=== PATIENT | female | born 1960 | race African-American/Black ===

== ENCOUNTER 2017-07-09 06:48 | Day surgery (SDC) | payer MEDICARE, OTHER ==
[~2017-07-09] VITALS: Ht 157.5 cm; Wt 102.0 kg
[2017-07-09] VITALS (8 sets, daily range): BP systolic 105–121; BP diastolic 59–77; PULSE 58–72; RESP 14–20; Ht 157.5 cm; Wt 102.0 kg
--- NOTE | 2017-07-09 04:27 | PREOPHP ---
DATE OF ADMISSION: 07/09/2017 HISTORY OF PRESENT ILLNESS: This is a 56-year-old lady, 1, para 0, and her last normal menstrual period was at the age of 51. She was admitted for D and C, hysteroscopy and suction curettage. This patient had an ultrasound done and ultrasound revealed endometrial thickness 1.4 cm. Endometrial biopsy was done but did not show enough tissue. The patient wanted to go for D and C for total rule out of endometrial hyperplasia. The procedures were explained to the patient and she understood everything totally. The risks, benefits, and alternatives were discussed with her as well. Also that the endometrial biopsy did not show any endometrial tissue was told. PAST PERSONAL HISTORY: No history of TB, asthma or allergy. The patient has a history of a stroke in 2013. SURGICAL HISTORY: She had surgery in 2013. She had D and C done 40 years ago. She had biopsy of the right breast in 1972 and 1974. FAMILY HISTORY: Mother had a stroke. Brothers and grandmother on mother's side have diabetes. Brother, mother, and grandmother on mother's side have high blood pressure. DIRECT SUPPORT PROFESSIONAL HISTORY: She had menarche at the age of 11, every 28 days interval, 3-4 days duration, and moderate in amount. REVIEW OF SYSTEMS: CARDIOVASCULAR: No chest pain. RESPIRATORY: No cough. GASTROINTESTINAL: No diarrhea. No vomiting. GENITOURINARY: No dysuria. PHYSICAL EXAMINATION: GENERAL: Reveals a conscious, coherent lady, in no acute distress. VITAL SIGNS: Blood pressure 120/80, pulse rate 80 per minute, respirations 16 per minute. LUNGS: Breath sounds and lungs within normal limits. ABDOMEN: Soft. No organomegaly. Obese. PELVIC EXAM: Revealed the cervix to be firm. Uterus at upper limits of normal. Adnexa were negative for masses. RECTAL EXAM: Confirmed the pelvic findings. EXTREMITIES: No pedal edema. ADMITTING DIAGNOSES: 1. Endometrial thickening, rule out endometrial hyperplasia. 2. Morbid obesity. PLAN: The patient was planned to have D and C, hysteroscopy and suction curettage. The procedures were explained to her. She understood everything totally. The risks, benefits, and alternatives were discussed with her as well. Dictated By: Denae Montgomery MD /[email or web address]/[email or web address] /Document#: [id number]
[2017-07-09] MEDS ORDERED: METO-407 PO (07:31)
[2017-07-09] MEDS ORDERED: LISI10TA2 PO (07:31)
[2017-07-09] MEDS ORDERED: HYDR25TA6 PO (07:32)
[2017-07-09] MEDS ORDERED: ATOR40TA68 PO (07:32)
[2017-07-09] MEDS ORDERED: LEVE500S8 PO (07:32)
[2017-07-09] MEDS ORDERED: OXCA300T41 PO (07:33)
[2017-07-09] MEDS ORDERED: OXCA150T43 PO (07:33)
[2017-07-09] MEDS ORDERED: SUCR1TAB56 PO (07:34)
[2017-07-09] MEDS ORDERED: POTA20TA96 PO (07:35)
[2017-07-09] MEDS ORDERED: ERGO500037 PO (07:35)
[2017-07-09] MEDS ORDERED: MEPERIDINE 100 MG INJ ONE (09:43)
[2017-07-09] MEDS ORDERED: PROPOFOL 20 ML ONE (09:43)
[2017-07-09] MEDS ORDERED: LIDOCAINE 2% (SDV) 5 ML INJ ONE (09:43)
[2017-07-09] MEDS ORDERED: CEFAZOLIN 1 GM INJ ONE (09:43)
[2017-07-09] MEDS ORDERED: EPHEDrine SULFATE 50 MG/5 ML SYG ONE (10:12)
[2017-07-09] MEDS ORDERED: LABETALOL HCL 20MG INJ IV PRN (10:30)
[2017-07-09] MEDS ORDERED: OXYCODONE/ACETAMINOPHEN (5/325) TAB PO PRN ×2 (10:30)
[2017-07-09] MEDS ORDERED: DIPHENHYDRAMINE 50 MG INJ IV PRN (10:30)
[2017-07-09] MEDS ORDERED: HYDROmorphONE (0.2 MG/ML) 10ML SYG IV PRN ×3 (10:30)
[2017-07-09] MEDS ORDERED: METOCLOPRAMIDE 10 MG INJ IV PRN (10:30)
[2017-07-09] MEDS ORDERED: MIDAZOLAM 1 MG/ML 2 ML INJ IV PRN (10:30)
[2017-07-09] MEDS ORDERED: MEPERIDINE 25 MG INJ IV PRN (10:30)
[2017-07-09] MEDS ORDERED: EPHEDrine SULFATE 50 MG/5 ML SYG IV PRN (10:30)
[2017-07-09] MEDS ORDERED: hydrALAzine 20 MG INJ IV PRN (10:30)
[2017-07-09] MEDS ORDERED: ONDANSETRON 4 MG INJ IV PRN (10:30)
[2017-07-09] MEDS ORDERED: FENTAnyl 50 MCG/ML VIAL IV PRN ×3 (10:30)
--- NOTE | 2017-07-09 10:51 | SIPON ---
Date/Time of Note Date/Time of Note DATE: 07/09/17 TIME: 10:50 Operative Report Preoperative Diagnosis ENDOMETRIAL THICKENING OBESITY Postoperative Diagnosis ENDOMETRIAL THICKENING OBESITY PENDING PATHOLOGY Operation/Procedure Performed DILATATION AND CURETTAGE HYSTEROSCOPY SUCTION CURETTAGE Surgeon see signature line ophthalmology assistant BUTCHER'S ASSISTANT Anesthesia: general Estimated blood loss: minimal Transfusion Required none Specimen ECC [facility] SUCTION CURETTAGE Grafts/Implants none Complications none SUMMER SCHMID MD Jul 09, 2017 10:51
--- NOTE | 2017-07-09 10:51 | SIPON ---
Date/Time of Note Date/Time of Note DATE: 07/09/17 TIME: 10:50 Operative Report Preoperative Diagnosis ENDOMETRIAL THICKENING OBESITY Postoperative Diagnosis ENDOMETRIAL THICKENING OBESITY PENDING PATHOLOGY Operation/Procedure Performed DILATATION AND CURETTAGE HYSTEROSCOPY SUCTION CURETTAGE Surgeon see signature line human resource assistant METAL HANGER Anesthesia: general Estimated blood loss: minimal Transfusion Required none Specimen ECC EMC SUCTION CURETTAGE Grafts/Implants none Complications none SUMMER SCHMID MD Jul 09, 2017 10:51
[2017-07-09] MEDS ORDERED: ACETAMINOPHEN 325 MG TAB PO PRN (11:00)
--- NOTE | 2017-07-09 22:44 | RADRPT ---
Vent Rate: 57 bpm RR Interval: 0 msec [place] Interval: 176 msec QRS Duration: 88 msec QT Interval: 428 msec QTC Interval: 416 msec P-R-T [place]: 74 - 78 - 49 degrees Sinus bradycardia Nonspecific T wave abnormality Abnormal ECG Electronically Signed By: Irving Harris [id number]
--- NOTE | 2017-07-09 22:44 | RADRPT ---
Vent Rate: 57 bpm RR Interval: 0 msec [place] Interval: 176 msec QRS Duration: 88 msec QT Interval: 428 msec QTC Interval: 416 msec P-R-T [place]: 74 - 78 - 49 degrees Sinus bradycardia Nonspecific T wave abnormality Abnormal ECG Electronically Signed By: Irving Harris [id number]
--- NOTE | 2017-07-09 23:07 | OPR ---
DATE OF OPERATION: 07/09/2017 PREOPERATIVE DIAGNOSES: 1. Endometrial thickening. 2. Rule out endometrial hyperplasia. 3. Obesity. POSTOPERATIVE DIAGNOSES: Pending pathology report. SURGEON: Denae Montgomery MD PYROTECHNICIAN: Farheen loyola. ANESTHESIA: General. OPERATION PERFORMED: 1. Fractional dilatation and curettage. 2. Hysteroscopy. 3. Suction curettage. OPERATIVE PROCEDURE: Under general anesthesia, the patient was prepped and draped in the usual fashion for vaginal surgery. Pelvic exam under anesthesia revealed the cervix to be firm, uterus of normal size, and adnexa were negative for masses. Then the heavyweight vaginal retractor was put in place, and the anterior lip of the cervix was grasped with an Allis clamp, and the cervical dilatation up to [place] 7 was proceeded. Uterus was sounded to about 3 inches. Then the hysteroscope was inserted inside the uterine cavity and connected with the light source. The uterus was distended with normal saline. There were no polyps nor fibroids seen. Endocervical curettage was done, and a small amount of tissue was obtained. Endometrial curettage was done, and a small amount of tissue was obtained. Suction tip size 6 was inserted inside the uterine cavity and connected with a suction machine. Suction curettage was done, and a small amount of tissue was obtained. The uterus was intact during and after the procedure. Patient tolerated the procedure well. Estimated blood loss was minimal. Vital signs were stable during and after the procedure. Dictated By: Denae Montgomery MD /[email or web address] /Document#: [id number] CC: Denae Montgomery MD
--- NOTE | 2017-07-09 23:07 | OPR ---
DATE OF OPERATION: 07/09/2017 PREOPERATIVE DIAGNOSES: 1. Endometrial thickening. 2. Rule out endometrial hyperplasia. 3. Obesity. POSTOPERATIVE DIAGNOSES: Pending pathology report. SURGEON: Denae Montgomery MD PRECISION CROP MANAGER: Farheen loyola. ANESTHESIA: General. OPERATION PERFORMED: 1. Fractional dilatation and curettage. 2. Hysteroscopy. 3. Suction curettage. OPERATIVE PROCEDURE: Under general anesthesia, the patient was prepped and draped in the usual fashion for vaginal surgery. Pelvic exam under anesthesia revealed the cervix to be firm, uterus of normal size, and adnexa were negative for masses. Then the heavyweight vaginal retractor was put in place, and the anterior lip of the cervix was grasped with an Allis clamp, and the cervical dilatation up to [place] 7 was proceeded. Uterus was sounded to about 3 inches. Then the hysteroscope was inserted inside the uterine cavity and connected with the light source. The uterus was distended with normal saline. There were no polyps nor fibroids seen. Endocervical curettage was done, and a small amount of tissue was obtained. Endometrial curettage was done, and a small amount of tissue was obtained. Suction tip size 6 was inserted inside the uterine cavity and connected with a suction machine. Suction curettage was done, and a small amount of tissue was obtained. The uterus was intact during and after the procedure. Patient tolerated the procedure well. Estimated blood loss was minimal. Vital signs were stable during and after the procedure. Dictated By: Denae Montgomery MD /[email or web address] /Document#: [id number] CC: Denae Montgomery MD
== END 2017-07-09 11:30 | disposition home or self-care (01) ==
LOC: SDS 06:48
PROVIDERS: ATTEND Obstetrics & Gynecology
DX: D26.0 Other benign neoplasm of cervix uteri (principal); I10 Essential (primary) hypertension; E78.5 Hyperlipidemia, unspecified; E66.9 Obesity, unspecified
CPT/HCPCS: 58558; 84703; 88305; 93005; J0690; J2175